=== PATIENT | male | born 1935 | race Caucasian/White ===

== ENCOUNTER 2017-06-02 00:07 | Emergency (ER) | payer OTHER ==
[~2017-06-02] VITALS: Ht 185.4 cm; Wt 90.7 kg
[2017-06-02 00:42] LABS: Basophils # (auto) 0.2 uL; Basophils % (auto) 3.1 % (0.0-2.0); Eosinophils # (auto) 0 uL; Eosinophils % (auto) 0.5 % (0.0-7.0); Hematocrit 43.9 % (41.0-53.0); Hemoglobin 14.8 g/dL (13.5-17.5); Lymphocytes # (auto) 0.7 uL; Lymphocytes % (auto) 11.4 % (10.0-50.0); Mean Corpuscular Hemoglobin 30.8 pg (28.0-32.0); Mean Corpuscular Hgb Conc. 33.6 g/dL (32.0-36.0); Mean Corpuscular Volume 91.6 fL (80.0-100.0); Monocytes # (auto) 0.4 uL; Monocytes % (auto) 5.8 % (0.0-12.0); Neutrophils % (auto) 79.2 % (37.0-80.0); Nucleated Red Blood Cells % 0.1 %; Platelet Count (auto) 283 10^3/uL (140-450); Red Blood Cells 4.79 10^6/uL (4.5-5.90); Red Cell Distribution Width 14.4 % (11.8-14.3); White Blood Cell 6.3 10^3/uL (4.4-10.8)
[2017-06-02 00:49] LABS: INR 0.95 (0.9-1.15); Partial Thromboplastin Time 28.3 sec (22.64-33.71); Prothrombin Time 10.3 sec (9.37-12.3)
[2017-06-02 00:59] LABS: Alanine Aminotransferase 28 U/L (16-61); Albumin 3.4 g/dL (3.4-5.0); Alkaline Phosphatase 86 U/L (45-117); Anion Gap 7 (5-15); Aspartate Aminotransferase 26 U/L (15-37); BUN/Creatinine Ratio 11.8; Bilirubin, Total 0.4 mg/dL (0.2-1.0); Blood Urea Nitrogen 14 mg/dL (7-18); Calcium 7.8 mg/dL (8.5-10.1); Carbon Dioxide 22 mmol/L (21-32); Chloride 107 mmol/L (98-107); GFR African American 76 mL/min; GFR Non-African American 63 mL/min; Glucose 133 mg/dL (74-106); Potassium 3.8 mmol/L (3.5-5.1); Sodium 136 mmol/L (136-145); Total Protein 6.8 g/dL (6.4-8.2)
[2017-06-02 01:08] LABS: Magnesium 1.7 mg/dL (1.6-2.6)
[2017-06-02] MEDS ORDERED: IOHEXOL 350 MG/ML 100ML IJ ONE (04:13)
[2017-06-02] MEDS ORDERED: CALCIUM CHL 100MG/ML 1,000 MG in D5W 5% 100 ML IV ONE (06:15)
[2017-06-02 09:02] LABS: Urine Bacteria NONE SEEN /hpf (None Seen); Urine Blood Negative /uL (Negative); Urine WBC <1 /hpf (0 - 3)
[2017-06-02 09:20] LABS: Urine Specific Gravity > 1.050 (1.001-1.035)
[2017-06-02 09:33] VITALS: BP 145/77
== END 2017-06-02 09:58 | disposition short-term general hospital (02) ==
LOC: EDBD 00:07 → ER 00:07
DX: R53.1 Weakness (principal); R06.00 Dyspnea, unspecified; M19.90 Unspecified osteoarthritis, unspecified site; I10 Essential (primary) hypertension; Z95.0 Presence of cardiac pacemaker
CPT/HCPCS: 36415; 71045; 71275; 74176; 80053; 81001; 82150; 82550; 83690; 83735; 83880; 84443; 84484; 85025; 85610; 85730; 93005; 94761; 96365; 99285; Q9967; J7060

== ENCOUNTER 2022-06-04 11:34 | Inpatient (IN) | payer OTHER ==
[~2022-06-04] VITALS: Ht 182.9 cm; Wt 93.1 kg
[2022-06-04] VITALS (26 sets, daily range): BP systolic 84–148; BP diastolic 57–73
[2022-06-04] MEDS ORDERED: ASPirin 81 mg TAB PO ONE (11:45)
[2022-06-04 12:20] LABS: Basophils # (auto) 0 10 ^3/uL (0-0.2); Eosinophils # (auto) 0 10 ^3/uL (0-0.8); Eosinophils % (auto) 0.1 % (0.0-7.0); Lymphocytes # (auto) 0.8 10 ^3/uL (0.4-5.4); Neutrophils % (auto) 87.1 % (37.0-80.0); Red Cell Distribution Width 15.3 % (11.8-14.3)
[2022-06-04 12:21] LABS: Basophils % (auto) 0.2 % (0.0-2.0); Hematocrit 39.2 % (41.0-53.0); Hemoglobin 12.9 g/dL (13.5-17.5); Lymphocytes % (auto) 7.5 % (10.0-50.0); Mean Corpuscular Hemoglobin 29.9 pg (28.0-32.0); Mean Corpuscular Hgb Conc. 32.8 g/dL (32.0-36.0); Mean Corpuscular Volume 91.4 fL (80.0-100.0); Monocytes # (auto) 0.6 10 ^3/uL (0-1.3); Monocytes % (auto) 5.1 % (0.0-12.0); Neutrophils # (auto) 9.5 10 ^3/uL (1.6-8.6); Red Blood Cells 4.29 10^6/uL (4.5-5.90); White Blood Cell 10.9 10^3/uL (4.4-10.8)
[2022-06-04] MEDS ORDERED: AMIODARONE HCL 150 MG in D5W 5% 100 ML IV ONE ×2 (12:30→15:30)
[2022-06-04] MEDS ORDERED: AMIODARONE HCL (50 MG/ ML) 3 ML VIAL IV ONE ×2 (12:30→17:12)
[2022-06-04 12:35] LABS: INR 1.13 (0.9-1.15); Partial Thromboplastin Time 32.8 sec (24.6-33.4)
[2022-06-04 12:44] LABS: Calcium 8.6 mg/dL (8.5-10.1)
[2022-06-04 12:50] LABS: Albumin 2.7 g/dL (3.4-5.0); BUN/Creatinine Ratio 15.3 (10.0-20.0); Bilirubin, Total 0.6 mg/dL (0.2-1.0); Total Protein 6.9 g/dL (6.4-8.2)
[2022-06-04] MEDS: AMIODARONE HCL IV SCH ×3 (13:00→13:20)
[2022-06-04] MEDS: D5W 5% IV SCH ×3 (13:00→13:20)
[2022-06-04] MEDS ORDERED: AMIODARONE 450mg/250ml AE 250 ML IV SCH ×2 (13:15→19:45)
[2022-06-04] MEDS ORDERED: NITROGLYCERIN 0.4 MG SL TAB SL PRN ×2 (15:45→18:45)
[2022-06-04] MEDS ORDERED: MORPHINE SULFATE INJ 2 MG/ml SYRG IV PRN ×2 (15:45→18:45)
[2022-06-04] MEDS ORDERED: MAGNESIUM SULFATE 1GM/100ML 100 ML IV ONE (15:45)
[2022-06-04] MEDS ORDERED: FUROSEMIDE 40 MG/4 ML VIAL IV ONE (15:45)
[2022-06-04] MEDS ORDERED: LIDOCAINE HCL 100 MG/5ML (2%) SYRG INJ IV ONE (16:34)
[2022-06-04] MEDS ORDERED: HEPARIN SODIUM (PORCINE) 5000 UNITS/ML 1ML VIAL ONE (16:42)
[2022-06-04] MEDS ORDERED: ANGIOMAX 250 MG VIAL IV ONE (16:42)
[2022-06-04] MEDS ORDERED: fentaNYL CITRATE 100 MCG/2 ML VL ONE (16:42)
[2022-06-04] MEDS ORDERED: LIDOCAINE 2%HCL (LOCAL ANESTH.) INJ 10ml MDV ONE (16:43)
[2022-06-04] MEDS ORDERED: ATROPINE SULF 1 MG/10ml SYR ONE (16:43)
[2022-06-04] MEDS ORDERED: MIDAZOLAM HCL 2MG/2ML 2ml VIAL (1mg/ml) ONE (16:43)
[2022-06-04] MEDS ORDERED: SODIUM CHL 0.9% 50 ML ONE ×2 (16:43→16:53)
[2022-06-04] MEDS ORDERED: methylPREDNISolone SOD SUCC 125 MG/2 ML VL ONE (16:47)
[2022-06-04] MEDS ORDERED: diphenhdrAMINE HCL 50 MG/1 ML VL ONE (16:47)
[2022-06-04] MEDS ORDERED: FAMOTIDINE (10MG/ML) 2ML VL IV ONE (16:47)
[2022-06-04] MEDS ORDERED: IODIXANOL 320MG/ML 100ML BTL IV ONE (16:50)
[2022-06-04] MEDS ORDERED: VERAPAMIL 2.5MG/ML INJ 2ML VIAL IV ONE (16:52)
[2022-06-04] MEDS ORDERED: METOPROLOL TARTRATE 1MG/1ML-5ML VIAL IV ONE (16:56)
[2022-06-04] MEDS ORDERED: NOREPINEPHRINE 8 MG/250ML KIT 250 ML IV ONE (17:02)
[2022-06-04] MEDS ORDERED: ETOMIDATE (2MG/ML) 20ML VIAL IV ONE (17:16)
[2022-06-04] MEDS ORDERED: SUCCINYLCHOLINE CHLORIDE 20 MG/ML 10ML VIAL IV ONE (17:16)
[2022-06-04] MEDS ORDERED: PROPOFOL 100 ML IV ONE (17:26)
[2022-06-04] MEDS ORDERED: MIDAZOLAM DRIP 50 mg/50mL 50 ML IV ONE (17:28)
[2022-06-04] MEDS: PROPOFOL 100 ML IV SCH ×2 (17:45→22:33)
[2022-06-04] MEDS: NOREPINEPHRINE 8 MG/250ML KIT 250 ML IV SCH ×2 (17:45→22:55)
[2022-06-04] MEDS: LIDOCAINE 4MG/ML IV SOLN 500 ML IV SCH (17:45)
[2022-06-04] MEDS ORDERED: ASPirin 81 mg TAB PO SCH (18:00)
[2022-06-04] MEDS ORDERED: ATORVASTATIN 20 MG TAB PO SCH ×2 (18:00→22:00)
[2022-06-04] MEDS: FUROSEMIDE 40 MG/4 ML VIAL IV SCH (18:00)
[2022-06-04] MEDS ORDERED: BUMETANIDE 2.5mg/10ml (0.25 mg/ml) INJ IV ONE ×2 (18:30→20:30)
[2022-06-04] MEDS ORDERED: ACETAMINOPHEN 325 MG TAB PO PRN (18:45)
[2022-06-04] MEDS ORDERED: HYDROcodone-ACET 5/325MG TAB PO PRN (18:45)
[2022-06-04] MEDS ORDERED: ONDANSETRON HCL 4 MG/2 ML VIAL IV PRN (18:45)
[2022-06-04] MEDS: VASOPRESSIN 20 UNITS in SODIUM CHL 0.9% 99 ML IV SCH (19:30)
[2022-06-04] MEDS: MIDAZOLAM DRIP 50 mg/50mL 50 ML IV SCH (21:19)
[2022-06-04] MEDS ORDERED: TICAGRELOR 90 MG TAB PO SCH (22:00)
[2022-06-04] MEDS: METOPROLOL TARTRATE 25 MG TAB PO SCH (22:29)
[2022-06-04] MEDS: TICAGRELOR 90 MG TAB PO SCH (22:30)
[2022-06-04] MEDS: SODIUM CHLOR 0.9% PF (SALINE LOCK) 10ML VIAL/SYR IV SCH (22:31)
[2022-06-05] VITALS (103 sets, daily range): BP systolic 80–146; BP diastolic 41–76
[2022-06-05 00:06] LABS: Urine Bacteria NONE SEEN /hpf (None Seen); Urine Blood Negative /uL (Negative); Urine Mucus FEW (None Seen); Urine Specific Gravity > 1.050 (1.001-1.035); Urine WBC 4 /hpf (0 - 3)
[2022-06-05] MEDS: AMIODARONE 450mg/250ml AE 250 ML IV SCH ×3 (00:47→22:27)
[2022-06-05] MEDS: MIDAZOLAM DRIP 50 mg/50mL 50 ML IV SCH ×4 (02:39→22:28)
[2022-06-05 03:58] LABS: Basophils # (auto) 0 10 ^3/uL (0-0.2); Eosinophils # (auto) 0 10 ^3/uL (0-0.8); Monocytes # (auto) 0.3 10 ^3/uL (0-1.3)
[2022-06-05 04:00] LABS: Basophils % (auto) 0.2 % (0.0-2.0); Hematocrit 38.9 % (41.0-53.0); Hemoglobin 13.2 g/dL (13.5-17.5); Lymphocytes # (auto) 0.3 10 ^3/uL (0.4-5.4); Lymphocytes % (auto) 2.5 % (10.0-50.0); Mean Corpuscular Hemoglobin 31.7 pg (28.0-32.0); Mean Corpuscular Volume 93.4 fL (80.0-100.0); Monocytes % (auto) 2.5 % (0.0-12.0); Neutrophils % (auto) 94.8 % (37.0-80.0); Red Blood Cells 4.17 10^6/uL (4.5-5.90); Red Cell Distribution Width 15.8 % (11.8-14.3); White Blood Cell 12.7 10^3/uL (4.4-10.8)
[2022-06-05 04:13] LABS: Albumin 2.8 g/dL (3.4-5.0); Calcium 7.8 mg/dL (8.5-10.1); Potassium 4.9 mmol/L (3.5-5.1)
[2022-06-05 04:18] LABS: BUN/Creatinine Ratio 17.4 (10.0-20.0); Bilirubin, Total 0.5 mg/dL (0.2-1.0); Total Protein 6.2 g/dL (6.4-8.2)
[2022-06-05] MEDS: FUROSEMIDE 40 MG/4 ML VIAL IV SCH ×2 (05:56→18:05)
[2022-06-05] MEDS: PROPOFOL 100 ML IV SCH ×2 (05:56→15:31)
[2022-06-05] MEDS: SODIUM CHLOR 0.9% PF (SALINE LOCK) 10ML VIAL/SYR IV SCH ×4 (05:56→21:48)
[2022-06-05] MEDS: NOREPINEPHRINE 8 MG/250ML KIT 250 ML IV SCH ×2 (05:57→15:31)
[2022-06-05] MEDS: VASOPRESSIN 20 UNITS in SODIUM CHL 0.9% 99 ML IV SCH ×2 (06:37→09:11)
[2022-06-05] MEDS: METOPROLOL TARTRATE 25 MG TAB PO SCH ×2 (09:07→21:52)
[2022-06-05] MEDS: TICAGRELOR 90 MG TAB PO SCH ×2 (09:58→21:48)
[2022-06-05] MEDS: PANTOPRAZOLE 40 MG/10 ML VIAL INJ IV SCH (09:59)
[2022-06-05] MEDS: ASPirin 81 mg TAB PO SCH (09:59)
[2022-06-05] MEDS ORDERED: ENOXAPARIN SOD 40 MG/0.4 ML SYRINGE SC SCH (10:00)
[2022-06-05] MEDS: LIDOCAINE 4MG/ML IV SOLN 500 ML IV SCH (10:08)
[2022-06-05] MEDS ORDERED: LIDOCAINE 4MG/ML IV SOLN 500 ML IV SCH (15:00)
[2022-06-05] MEDS ORDERED: LIDOCAINE 1% (LOCAL ANESTH.) PF 5ml SDV ID ONE (17:30)
[2022-06-05] MEDS: ATORVASTATIN 20 MG TAB PO SCH (18:05)
[2022-06-06] VITALS (103 sets, daily range): BP systolic 75–150; BP diastolic 21–83
[2022-06-06] MEDS: PROPOFOL 100 ML IV SCH ×3 (00:23→17:07)
[2022-06-06] MEDS: NOREPINEPHRINE 8 MG/250ML KIT 250 ML IV SCH ×3 (00:28→13:33)
[2022-06-06] MEDS: MIDAZOLAM DRIP 50 mg/50mL 50 ML IV SCH ×4 (00:57→22:11)
[2022-06-06 04:43] LABS: Albumin 2.1 g/dL (3.4-5.0); BUN/Creatinine Ratio 19.5 (10.0-20.0); Bilirubin, Total 0.5 mg/dL (0.2-1.0); Calcium 6.6 mg/dL (8.5-10.1); Total Protein 5.3 g/dL (6.4-8.2)
[2022-06-06 04:44] LABS: Basophils # (auto) 0 10 ^3/uL (0-0.2); Basophils % (auto) 0.4 % (0.0-2.0); Eosinophils # (auto) 0 10 ^3/uL (0-0.8); Hematocrit 35.3 % (41.0-53.0); Lymphocytes # (auto) 1.3 10 ^3/uL (0.4-5.4); Lymphocytes % (auto) 11.1 % (10.0-50.0); Mean Corpuscular Hemoglobin 30.9 pg (28.0-32.0); Mean Corpuscular Volume 90.8 fL (80.0-100.0); Monocytes # (auto) 0.9 10 ^3/uL (0-1.3); Monocytes % (auto) 7.4 % (0.0-12.0); Neutrophils # (auto) 9.4 10 ^3/uL (1.6-8.6); Neutrophils % (auto) 81.1 % (37.0-80.0); Red Blood Cells 3.88 10^6/uL (4.5-5.90); Red Cell Distribution Width 15.5 % (11.8-14.3); White Blood Cell 11.6 10^3/uL (4.4-10.8)
[2022-06-06] MEDS: VASOPRESSIN 20 UNITS in SODIUM CHL 0.9% 99 ML IV SCH ×2 (04:51→15:58)
[2022-06-06] MEDS: FUROSEMIDE 40 MG/4 ML VIAL IV SCH ×2 (05:32→17:52)
[2022-06-06] MEDS: SODIUM CHLOR 0.9% PF (SALINE LOCK) 10ML VIAL/SYR IV SCH ×5 (05:37→22:21)
[2022-06-06] MEDS ORDERED: SODIUM BICARBONATE 8.4 % INJ 50ML VIAL IV ONE (08:03)
[2022-06-06] MEDS: MAGNESIUM SULFATE 1GM/100ML 100 ML IV SCH ×2 (08:12→09:07)
[2022-06-06] MEDS ORDERED: ROCURONIUM 10MG/ML 10ML VIAL IV ONE (08:30)
[2022-06-06] MEDS ORDERED: ENOXAPARIN SOD 80 MG/0.8ML SYRINGE SC ONE (09:00)
[2022-06-06] MEDS: LIDOCAINE 4MG/ML IV SOLN 500 ML IV SCH ×2 (09:00→16:34)
[2022-06-06] MEDS: ASPirin 81 mg TAB PO SCH (09:31)
[2022-06-06] MEDS: PANTOPRAZOLE 40 MG/10 ML VIAL INJ IV SCH (09:31)
[2022-06-06] MEDS: TICAGRELOR 90 MG TAB PO SCH ×2 (09:31→22:12)
[2022-06-06 09:46] LABS: Basophils # (auto) 0.3 10 ^3/uL (0-0.2); Eosinophils # (auto) 0 10 ^3/uL (0-0.8); Hematocrit 31.1 % (41.0-53.0); Hemoglobin 10.5 g/dL (13.5-17.5); Lymphocytes # (auto) 0.5 10 ^3/uL (0.4-5.4); Lymphocytes % (auto) 3.4 % (10.0-50.0); Mean Corpuscular Hemoglobin 31.4 pg (28.0-32.0); Mean Corpuscular Hgb Conc. 33.7 g/dL (32.0-36.0); Mean Corpuscular Volume 93.3 fL (80.0-100.0); Monocytes # (auto) 0.4 10 ^3/uL (0-1.3); Neutrophils % (auto) 91.6 % (37.0-80.0); Nucleated Red Blood Cells % 0.1 %; Red Blood Cells 3.33 10^6/uL (4.5-5.90); Red Cell Distribution Width 15.6 % (11.8-14.3); White Blood Cell 14.2 10^3/uL (4.4-10.8)
[2022-06-06] MEDS: METOPROLOL TARTRATE 25 MG TAB PO SCH ×2 (10:00→22:00)
[2022-06-06] MEDS: AMIODARONE 450mg/250ml AE 250 ML IV SCH ×3 (10:07→23:55)
[2022-06-06] MEDS ORDERED: ROCURONIUM 10MG/ML 10ML VIAL IV PRN (10:30)
[2022-06-06] MEDS: PHENYLEPHRINE INJ 80 MG in SODIUM CHL 0.9% 242 ML IV SCH ×2 (11:11→22:13)
[2022-06-06 12:51] LABS: Anion Gap 8 (5-15); Carbon Dioxide 22 mmol/L (21-32); Chloride 107 mmol/L (98-107); Potassium 4.1 mmol/L (3.5-5.1); Sodium 137 mmol/L (136-145)
[2022-06-06 12:52] LABS: BUN/Creatinine Ratio 18.9 (10.0-20.0); Blood Urea Nitrogen 43 mg/dL (7-18); Calcium 8.5 mg/dL (8.5-10.1); GFR African American 35 mL/min; GFR Non-African American 29 mL/min; Glucose 240 mg/dL (74-106)
[2022-06-06] MEDS ORDERED: NOREPINEPHRINE BITARTRATE 32 MG in SODIUM CHL 0.9% 218 ML IV SCH (13:45)
[2022-06-06] MEDS ORDERED: EPINEPHrine HCL 1 MG/10 ML SYRG IV ONE (16:17)
[2022-06-06] MEDS ORDERED: SODIUM BICARBONATE 8.4% INJ 50ML SYRINGE IV ONE (16:17)
[2022-06-06] MEDS: ATORVASTATIN 20 MG TAB PO SCH (17:53)
[2022-06-07] VITALS: BP 77/41
[2022-06-07 00:15] VITALS: BP 79/45
[2022-06-07 00:20] VITALS: BP 79/45
[2022-06-07 00:45] VITALS: BP 82/41
[2022-06-07 01:00] VITALS: BP 73/32
[2022-06-07 01:30] VITALS: BP 59/35
[2022-06-07] MEDS ORDERED: ENOXAPARIN SOD 80 MG/0.8ML SYRINGE SC SCH (10:00)
== END 2022-06-07 06:36 ==
LOC: EDBD 11:34 → ER 11:34 → ICU WEST 18:45
PROVIDERS: ADMIT Nurse Practitioner Family; ATTEND Family Medicine
PROC: 5A2204Z Restoration of Cardiac Rhythm, Single (ICD-10-PCS; principal; 2022-06-04)
PROC: 06HY33Z Insertion of Infusion Device into Lower Vein, Percutaneous Approach (ICD-10-PCS; 2022-06-04)
PROC: 0BH17EZ Insertion of Endotracheal Airway into Trachea, Via Natural or Artificial Opening (ICD-10-PCS; 2022-06-04)
PROC: 5A1945Z Respiratory Ventilation, 24-96 Consecutive Hours (ICD-10-PCS; 2022-06-04)
PROC: B211YZZ Fluoroscopy of Multiple Coronary Arteries using Other Contrast (ICD-10-PCS; 2022-06-04)
PROC: 02HV33Z Insertion of Infusion Device into Superior Vena Cava, Percutaneous Approach (ICD-10-PCS; 2022-06-05)
PROC: 5A12012 Performance of Cardiac Output, Single, Manual (ICD-10-PCS; 2022-06-06)
DX: I21.4 Non-ST elevation (NSTEMI) myocardial infarction (principal); I50.41 Acute combined systolic (congestive) and diastolic (congestive) heart failure; J96.01 Acute respiratory failure with hypoxia; E46 Unspecified protein-calorie malnutrition; I47.20 Ventricular tachycardia, unspecified; I48.20 Chronic atrial fibrillation, unspecified; I47.1 Supraventricular tachycardia; I48.92 Unspecified atrial flutter; I13.0 Hypertensive heart and chronic kidney disease with heart failure and stage 1 through stage 4 chronic kidney disease, or unspecified chronic kidney disease; I25.10 Atherosclerotic heart disease of native coronary artery without angina pectoris; D72.829 Elevated white blood cell count, unspecified; E78.5 Hyperlipidemia, unspecified; I49.8 Other specified cardiac arrhythmias; M81.0 Age-related osteoporosis without current pathological fracture; I71.40 Abdominal aortic aneurysm, without rupture, unspecified; K21.9 Gastro-esophageal reflux disease without esophagitis; I24.9 Acute ischemic heart disease, unspecified; N18.9 Chronic kidney disease, unspecified; I25.2 Old myocardial infarction; Z95.0 Presence of cardiac pacemaker; Z95.5 Presence of coronary angioplasty implant and graft; Z91.041 Radiographic dye allergy status; Z79.01 Long term (current) use of anticoagulants; Z68.27 Body mass index [BMI] 27.0-27.9, adult
CPT/HCPCS: 36415; 36569; 36600; 71045; 80048; 80053; 81001; 82805; 82962; 83690; 83735; 83880; 84484; 85025; 85379; 85610; 85730; 87070; 87081; 87205; 92950; 93005; 93306; 93454; 94003; 96365; 96366; C9113; G0378; J0330; J2001; J2250; J2704; J3490; J7060; Q9967